=== PATIENT | male | born 1955 | race Caucasian/White ===

== ENCOUNTER 2021-12-20 06:40 | Emergency (ER) | payer MEDICARE ==
[~2021-12-20] VITALS: Ht 172.7 cm; Wt 90.7 kg
[2021-12-20] MEDS ORDERED: METF500 (07:28)
[2021-12-20] MEDS ORDERED: EUTHYROX50 MC1 PO (07:28)
[2021-12-20] MEDS ORDERED: LOVASTATIN20 MG PO (07:29)
[2021-12-20] MEDS ORDERED: ASPI81CH PO (07:29)
[2021-12-20] MEDS ORDERED: NEOPOLHCSU LEFTEAR (09:50)
[2021-12-20] MEDS ORDERED: CIPR500 PO (09:50)
== END 2021-12-20 10:25 | disposition home or self-care (01) ==
LOC: ER 06:40
DX: H60.92 Unspecified otitis externa, left ear (principal); H66.92 Otitis media, unspecified, left ear; Z79.890 Hormone replacement therapy; Z79.84 Long term (current) use of oral hypoglycemic drugs; Z79.82 Long term (current) use of aspirin; Z79.899 Other long term (current) drug therapy; E11.9 Type 2 diabetes mellitus without complications
CPT/HCPCS: 70480; A9270; J1885

== ENCOUNTER 2022-04-13 08:56 | Day surgery (SDC) | payer MEDICARE ==
[~2022-04-13] VITALS: Ht 172.7 cm; Wt 84.8 kg
[~2022-04-13 08:56] MED LIST: ASPI81CH PO; CIPR500 PO; EUTHYROX50 MC1 PO; LOVASTATIN20 MG PO; METF500; NEOPOLHCSU LEFTEAR
[2022-04-13] MEDS ORDERED: FISH OIL 1,2001 EAC7 (09:22)
[2022-04-13] MEDS ORDERED: Amaryl1 MG (09:23)
[2022-04-13] MEDS ORDERED: GABA300 (09:23)
[2022-04-13] MEDS ORDERED: PIOG15 (09:23)
[2022-04-13] MEDS ORDERED: LISI10 (09:23)
[2022-04-13] MEDS ORDERED: PSYSENPA (09:24)
== END 2022-04-13 10:43 | disposition home or self-care (01) ==
LOC: ORSCSDS 08:56
PROVIDERS: Internal Medicine Gastroenterology
PROC: 0DBL8ZX Excision of Transverse Colon, Via Natural or Artificial Opening Endoscopic, Diagnostic (ICD-10-PCS; principal; 2022-04-13 10:15)
DX: Z12.11 Encounter for screening for malignant neoplasm of colon (principal); K63.5 Polyp of colon; K64.8 Other hemorrhoids; E11.42 Type 2 diabetes mellitus with diabetic polyneuropathy; E78.5 Hyperlipidemia, unspecified; I10 Essential (primary) hypertension; E03.9 Hypothyroidism, unspecified; Z79.84 Long term (current) use of oral hypoglycemic drugs; Z79.899 Other long term (current) drug therapy
CPT/HCPCS: 82947; 88305; J2704; J7120